=== PATIENT | female | born 1940 | race Two or more races ===

== ENCOUNTER 2017-03-30 11:10 | Outpatient (CLI) | payer OTHER ==
[~2017-03-30 11:10] MED LIST: AMOX1TAB12 PO; ASA81 MG PO; BONIVA150 MG PO; CEFADROXIL500 MG PO; DICLOFENAC SODI50 MG PO; LOSARTAN-HCTZ1 EACH PO; PERCOCET 5/3251 TAB PO; PLAVIX PO; SIMVASTATIN20 MG PO; SYNTHROID100 MCG PO; XARELTO10 MG PO
== END 2017-03-30 11:12 | disposition home or self-care (01) ==
LOC: RAD 501 11:10
DX: S82.042D Displaced comminuted fracture of left patella, subsequent encounter for closed fracture with routine healing (principal)

== ENCOUNTER → 2017-06-14 | Outpatient (CLI) | payer OTHER | END | disposition home or self-care (01) | LOC: RAD 11:48 | DX: M25.552 Pain in left hip (principal); M79.652 Pain in left thigh ==

== ENCOUNTER 2018-10-22 10:02 | Outpatient (CLI) | payer OTHER | END 2018-10-22 10:13 | disposition home or self-care (01) | LOC: NUCLEAR 10:02 | DX: M81.0 Age-related osteoporosis without current pathological fracture (principal) ==

== ENCOUNTER 2019-10-11 13:22 | Outpatient (CLI) | payer OTHER | END 2019-10-11 14:02 | disposition home or self-care (01) | LOC: NUCLEAR 13:22 | PROVIDERS: ATTEND Orthopaedic Surgery | DX: M81.0 Age-related osteoporosis without current pathological fracture (principal) ==

== ENCOUNTER 2019-11-07 07:19 | Outpatient (CLI) | payer OTHER | END 2019-11-07 07:27 | disposition home or self-care (01) | LOC: LAB 07:19 | PROVIDERS: ATTEND Orthopaedic Surgery | DX: E03.8 Other specified hypothyroidism (principal); N39.0 Urinary tract infection, site not specified; E55.9 Vitamin D deficiency, unspecified; R73.01 Impaired fasting glucose; E78.00 Pure hypercholesterolemia, unspecified; M85.88 Other specified disorders of bone density and structure, other site; E21.2 Other hyperparathyroidism; E88.89 Other specified metabolic disorders; M81.8 Other osteoporosis without current pathological fracture; E56.1 Deficiency of vitamin K ==

== ENCOUNTER 2019-12-27 11:57 | Emergency (ER) | payer OTHER ==
[~2019-12-27] VITALS: Ht 152.4 cm; Wt 69.9 kg
[2019-12-27] MEDS ORDERED: SIMVASTATIN5 MG PO (12:13)
[2019-12-27] MEDS ORDERED: VITAMIN K MC (12:14)
[2019-12-27] MEDS ORDERED: SUPER B-50 COM1 EACH (12:15)
== END 2019-12-27 18:55 | disposition home or self-care (01) ==
LOC: ER 11:57
DX: M54.2 Cervicalgia (principal); R53.81 Other malaise; B96.0 Mycoplasma pneumoniae [M. pneumoniae] as the cause of diseases classified elsewhere; Z03.818 Encounter for observation for suspected exposure to other biological agents ruled out

== ENCOUNTER 2020-01-27 07:57 | Outpatient (CLI) | payer OTHER ==
[~2020-01-27 07:57] MED LIST changes: +SIMVASTATIN5 MG PO; +SUPER B-50 COM1 EACH; +VITAMIN K MC
== END 2020-01-27 08:03 | disposition home or self-care (01) ==
LOC: LAB 07:57
PROVIDERS: ATTEND Specialist
DX: U07.1 COVID-19 (principal); J45.998 Other asthma; E03.8 Other specified hypothyroidism; Z12.11 Encounter for screening for malignant neoplasm of colon; R78.2 Finding of cocaine in blood; D64.89 Other specified anemias; N39.0 Urinary tract infection, site not specified; E11.9 Type 2 diabetes mellitus without complications

== ENCOUNTER 2020-01-31 11:06 | Outpatient (CLI) | payer OTHER | END 2020-01-31 11:11 | disposition home or self-care (01) | LOC: LAB 11:06 | PROVIDERS: ATTEND Specialist | DX: E03.8 Other specified hypothyroidism (principal); Z12.11 Encounter for screening for malignant neoplasm of colon; E78.2 Mixed hyperlipidemia; D64.89 Other specified anemias; N39.0 Urinary tract infection, site not specified; E11.9 Type 2 diabetes mellitus without complications; J45.998 Other asthma; Z20.828 Contact with and (suspected) exposure to other viral communicable diseases ==

== ENCOUNTER 2021-01-20 09:00 | Outpatient (CLI) | payer OTHER | END 2021-01-20 09:15 | disposition home or self-care (01) | LOC: PPH VACUNA 09:00 | PROVIDERS: ATTEND Emergency Medicine Pediatric Emergency Medicine | DX: Z23 Encounter for immunization (principal) ==

== ENCOUNTER 2021-02-22 10:24 | Outpatient (CLI) | payer OTHER | END 2021-02-22 10:33 | disposition home or self-care (01) | LOC: MRI 10:24 | PROVIDERS: ATTEND Specialist | DX: M51.37 Other intervertebral disc degeneration, lumbosacral region (principal); S12.9XXA Fracture of neck, unspecified, initial encounter; S12.000A Unspecified displaced fracture of first cervical vertebra, initial encounter for closed fracture; S32.001A Stable burst fracture of unspecified lumbar vertebra, initial encounter for closed fracture; S32.009A Unspecified fracture of unspecified lumbar vertebra, initial encounter for closed fracture | CPT/HCPCS: 72141; 72148 ==

== ENCOUNTER 2021-05-07 05:35 | Day surgery (SDC) | payer OTHER ==
[~2021-05-07 05:35] MED LIST changes: +CALCIUM PO; +CANDESARTAN CILE8 M1 PO; +CRESTOR5 MG PO
== END 2021-05-07 12:00 | disposition home or self-care (01) ==
LOC: CIR.AMB 05:35
PROVIDERS: ATTEND Anesthesiology Pain Medicine
DX: M47.896 Other spondylosis, lumbar region (principal); I10 Essential (primary) hypertension; E78.5 Hyperlipidemia, unspecified; E03.9 Hypothyroidism, unspecified; M19.90 Unspecified osteoarthritis, unspecified site; Z79.82 Long term (current) use of aspirin

== ENCOUNTER 2023-03-06 11:09 | Emergency (ER) | payer OTHER ==
[~2023-03-06] VITALS: Ht 154.9 cm; Wt 65.3 kg
[2023-03-06] MEDS ORDERED: CHILDREN'S ASPI81 MG (11:55)
[2023-03-06] MEDS ORDERED: VITAMIN D310 MC4 (11:55)
[2023-03-06] MEDS ORDERED: DICLOFENAC SODI75 MG PO (12:11)
[2023-03-06] MEDS ORDERED: NORFLEX100MG PO (12:11)
== END 2023-03-06 14:06 | disposition home or self-care (01) ==
LOC: ER 11:10
DX: M54.2 Cervicalgia (principal); I10 Essential (primary) hypertension
CPT/HCPCS: 96372; 99282; J1885; J2360

== ENCOUNTER 2023-06-14 09:05 | Outpatient (CLI) | payer OTHER ==
[~2023-06-14 09:05] MED LIST changes: +CHILDREN'S ASPI81 MG; +DICLOFENAC SODI75 MG PO; +NORFLEX100MG PO; +VITAMIN D310 MC4
== END 2023-06-14 09:25 | disposition home or self-care (01) ==
LOC: MAMO-SONO 09:05
PROVIDERS: ATTEND Obstetrics & Gynecology
DX: N60.09 Solitary cyst of unspecified breast (principal); Z12.31 Encounter for screening mammogram for malignant neoplasm of breast

== ENCOUNTER 2023-09-26 07:29 | Outpatient (CLI) | payer OTHER | END 2023-09-26 07:31 | disposition home or self-care (01) | LOC: NUCLEAR 07:29 | PROVIDERS: ATTEND Internal Medicine | DX: I20.89 Other forms of angina pectoris (principal) | CPT/HCPCS: 78452; 93017; A9500; J0153 ==

== ENCOUNTER 2023-12-09 10:21 | Emergency (ER) | payer OTHER ==
[~2023-12-09] VITALS: Ht 152.4 cm; Wt 66.2 kg
[2023-12-09] MEDS ORDERED: KETOROLAC TROMETHAMINE 30 MG VIAL IM STA (12:47)
== END 2023-12-09 13:27 | disposition home or self-care (01) ==
LOC: ER 10:23
DX: M25.531 Pain in right wrist (principal); E03.8 Other specified hypothyroidism; I10 Essential (primary) hypertension
CPT/HCPCS: 96372; 99282; J1885